=== PATIENT | male | born 1965 | race Asian ===

== ENCOUNTER 2017-04-06 23:46 | Emergency (ER) | payer SELFPAY ==
[~2017-04-06] VITALS: Ht 170.2 cm; Wt 100.0 kg
[2017-04-07 03:17] VITALS: BP 139/89
== END 2017-04-07 03:58 | disposition home or self-care (01) ==
LOC: EMS 23:47
DX: S00.212A Abrasion of left eyelid and periocular area, initial encounter (principal); S00.211A Abrasion of right eyelid and periocular area, initial encounter; F10.10 Alcohol abuse, uncomplicated; V43.02XA Car driver injured in collision with other type car in nontraffic accident, initial encounter; Y93.89 Activity, other specified; Y92.89 Other specified places as the place of occurrence of the external cause; Y99.8 Other external cause status
CPT/HCPCS: 70450; 71020; 72125; 93005; 99285